=== PATIENT | female | born 1975 | race Caucasian/White ===

== ENCOUNTER 2017-06-17 14:41 | Emergency (ER) | payer MEDICARE, OTHER ==
[~2017-06-17] VITALS: Ht 149.9 cm; Wt 93.0 kg
[~2017-06-17 14:41] MED LIST: NO HOME MEDS
[2017-06-17] MEDS ORDERED: normal saline 1000ML IV soln IV ONE (15:35)
[2017-06-17] MEDS ORDERED: oseltamivir phos 75mg capsule PO ONE (16:30)
[2017-06-17 16:31] LABS: BASOPHILS % (AUTO) 0 % (0-1); EOSINOPHILS # (AUTO) 0.3 X10'3 (0-0.9); EOSINOPHILS % (AUTO) 1.7 % (0-6); HEMATOCRIT 36.9 % (35.0-45.0); HEMOGLOBIN 12.2 g/dl (12.0-16.0); LYMPHOCYTES # (AUTO) 1.7 X10'3 (1.1-4.8); LYMPHOCYTES % (AUTO) 10.8 % (21-51); MEAN CORPUSCULAR HEMOGLOBIN 26.7 PG (27.0-31.0); MEAN CORPUSCULAR HGB CONC 33.1 % (33.0-36.5); MEAN CORPUSCULAR VOLUME 80.8 FL (78-98); MEAN PLATELET VOLUME 9.3 FL (7.4-10.4); MONOCYTES # (AUTO) 0.8 X10'3 (0-0.9); MONOCYTES % (AUTO) 5.3 % (2-12); NEUTROPHILS # (AUTO) 13.2 X10'3 (1.8-7.7); NEUTROPHILS % (AUTO) 82.2 % (42-75); PLATELET COUNT 280 X10'3 (140-440); RED BLOOD COUNT 4.57 X10'6 (4.20-5.60); RED CELL DISTRIBUTION WIDTH 15.1 % (11.5-14.5)
[2017-06-17 16:41] LABS: PARTIAL THROMBOPLASTIN TIME 30 SECONDS (22-32); PROTHROMBIN TIME 10.2 SECONDS (9.0-12.0)
[2017-06-17 16:45] LABS: ALANINE AMINOTRANSFERASE 36 U/L (12-78); ALBUMIN 3.3 G/DL (3.4-5.0); ALBUMIN/GLOBULIN RATIO 0.7 (1.1-1.5); ALKALINE PHOSPHATASE 102 IU/L (46-116); ANION GAP 9 (8-16); ASPARTATE AMINO TRANSFERASE 18 U/L (10-37); BILIRUBIN,TOTAL 0.4 MG/DL (0.1-1.0); BLOOD UREA NITROGEN 6 MG/DL (7-18); CALCIUM 8.4 MG/DL (8.5-10.1); CHLORIDE 96 MMOL/L (99-107); GLUCOSE 310 MG/DL (70-104); MAGNESIUM 1.3 MG/DL (1.5-2.4); POTASSIUM 3.9 MMOL/L (3.5-5.1); SODIUM 131 MMOL/L (135-145); eGFR > 90 ML/MIN
[2017-06-17] MEDS ORDERED: acetaminophen 325mg tablet PO ONE (17:30)
[2017-06-17] MEDS ORDERED: cefTRIAXone 1g/NS 100ml IVPB 100 ML IV ONE (17:30)
[2017-06-17] MEDS ORDERED: cefTRIAXone 1g/NS 100ml IVPB 100 ML IV SCH (17:30)
[2017-06-17] MEDS ORDERED: azithromycin 250mg tablet PO ONE (17:30)
[2017-06-17 17:35] LABS: URINE HCG NEGATIVE (NEG)
[2017-06-17 17:39] LABS: CLARITY,URINE CLEAR (Clear); COLOR,URINE YELLOW (Yellow); GLUCOSE, URINE >=1000 mg/dl (Neg); KETONES,URINE >=80 mg/dl (Neg); LEUKOCYTE ESTERASE ,URINE NEGATIVE (Neg); NITRITES, URINE NEGATIVE (Neg); OCCULT BLOOD,URINE TRACE-INTACT (Neg); PROTEIN,URINE 100 mg/dl (Neg); UROBILINOGEN,URINE 0.2 E.U/dL (0.2-1.0)
[2017-06-17 17:43] LABS: UA COLLECTION TYPE NON-SPECIFIED
[2017-06-17] MEDS ORDERED: AZIT250T2 PO (17:49)
[2017-06-17 17:57] LABS: BACTERIA,URINE NONE SEEN /HPF (Neg); RBC,URINE 0-2 /HPF (0-2); SQUAMOUS EPITHELIAL CELL,UR NONE SEEN /LPF (FEW); WBC,URINE 0-4 /HPF (0-4)
[2017-06-17 18:35] VITALS: BP 140/78
== END 2017-06-17 18:37 | disposition home or self-care (01) ==
LOC: ER 14:41
DX: J20.9 Acute bronchitis, unspecified (principal); E78.00 Pure hypercholesterolemia, unspecified; I10 Essential (primary) hypertension; G89.29 Other chronic pain; E11.9 Type 2 diabetes mellitus without complications; Z79.2 Long term (current) use of antibiotics
CPT/HCPCS: 36415; 71045; 80053; 81001; 81025; 83605; 83735; 84145; 85025; 85610; 85730; 87040; 87077; 87502; 87503; 93005; 96361; 96365; 99285; J0696; J7030; 87186

== ENCOUNTER 2017-08-15 13:01 | Emergency (ER) | payer MEDICARE, OTHER ==
[~2017-08-15] VITALS: Ht 149.9 cm; Wt 92.2 kg
[2017-08-15] MEDS ORDERED: ketorolac trometh inj. 60 MG/2 ML VIAL IM ONE (14:55)
[2017-08-15] MEDS ORDERED: ketorolac trometh. 30mg/ml inj. IM ONE (14:55)
[2017-08-15 15:28] VITALS: BP 135/81
== END 2017-08-15 15:32 | disposition home or self-care (01) ==
LOC: ER 13:01
DX: M54.41 Lumbago with sciatica, right side (principal); E78.00 Pure hypercholesterolemia, unspecified; I10 Essential (primary) hypertension; E11.9 Type 2 diabetes mellitus without complications; G89.29 Other chronic pain
CPT/HCPCS: 96372; 99283; J1885